=== PATIENT | female | born 1990 | race African-American/Black ===

== ENCOUNTER 2016-11-03 00:28 | Emergency (ER) | payer OTHER ==
[~2016-11-03] VITALS: Ht 149.9 cm; Wt 68.0 kg
[~2016-11-03 00:28] MED LIST: AUGMENTIN PO; FLEXERIL PO; PRENATAL1 TA1 PO
[2016-11-03 02:23] LABS: URINE SOURCE CLEAN CATCH
[2016-11-03 02:28] LABS: URINE APPEARANCE CLEAR; URINE BILIRUBIN NEG (NEG); URINE BLOOD NEG (NEG); URINE COLOR DK YELLOW; URINE GLUCOSE NEG (NEG); URINE KETONE 1+ (NEG); URINE LEUKOCYTE ESTERASE NEG (NEG); URINE NITRATE NEG (NEG); URINE PH 6.5 (5-8); URINE PROTEIN NEG (NEG); URINE SPECIFIC GRAVITY 1.036 (1.003-1.035)
[2016-11-03 02:31] LABS: CULTURE INDICATED? NO
[2016-11-07 23:37] LABS: CHLAMYDIA TRACH Not Detected (Not Detected); N GONOR Not Detected (Not Detected)
== END 2016-11-03 05:34 | disposition home or self-care (01) ==
LOC: CED 00:28
PROVIDERS: Physician Assistant
DX: O23.591 Infection of other part of genital tract in pregnancy, first trimester (principal); O99.331 Smoking (tobacco) complicating pregnancy, first trimester; F17.210 Nicotine dependence, cigarettes, uncomplicated
CPT/HCPCS: 81003; 84703; 87491; 87591; 87808; 87905; 99284

== ENCOUNTER 2016-11-10 21:54 | Emergency (ER) | payer OTHER ==
[~2016-11-10] VITALS: Ht 149.9 cm; Wt 70.3 kg
== END 2016-11-10 23:35 | disposition home or self-care (01) ==
LOC: CFTX 21:54 → CED 21:54 → CFTX 22:27
DX: J02.9 Acute pharyngitis, unspecified (principal); J35.8 Other chronic diseases of tonsils and adenoids; F17.210 Nicotine dependence, cigarettes, uncomplicated
CPT/HCPCS: 87651; 99283